=== PATIENT | male | born 1990 | race Caucasian/White ===

== ENCOUNTER 2016-08-12 05:45 | Day surgery (SDC) | payer MEDICAID ==
[~2016-08-12 05:45] MED LIST: AMITRIPTYLINE H50 M1 PO; BACLOFEN20 M1 PO; BACTRIM DS TAB1 EAC2 PO; ELIQUIS2.5 M1 PO; ENEMEEZ283 MG/5 M; LABETALOL HCL300 M1 PO; LYRICA75 MG/CAP PO; METHENAMINE HIPP1 G1 PO; MIRALAX17 G2 PO; MULTIPLE VITAM1 EAC3 PO; NITRO-BID1 INCH TP; NYSTOP60 GM EXT; PROTONIX40 M2 PO; REGLAN5 M1 PO; SENOKOT-S TABL1 EACH PO; SWEEN CREAM85 GM TP; TOPICAINE113 GM TP; TYLENOL325 M2 PO; VITAMIN C500 M3 PO; ZOFRAN4 M2 PO
[2016-08-12 06:40] LABS: INR 0.9 INR (0.9-1.1); PROTHROMBIN TIME 9.9 SECONDS (9.0-13.6)
== END 2016-08-12 12:35 ==
LOC: SRG 05:45 → SHSC 05:56 → PACU 10:16 → SHSC 11:30
PROVIDERS: Surgery
PROC: 0X6R0Z3 Detachment at Left Middle Finger, Low, Open Approach (ICD-10-PCS; principal; 2016-08-12)
DX: I96 Gangrene, not elsewhere classified (principal); G82.20 Paraplegia, unspecified; F17.210 Nicotine dependence, cigarettes, uncomplicated; N31.9 Neuromuscular dysfunction of bladder, unspecified; Z79.899 Other long term (current) drug therapy; Z98.890 Other specified postprocedural states
CPT/HCPCS: J0171; J2175; J3010; J3260; J3370